=== PATIENT | male | born 1995 | race Asian ===

== ENCOUNTER 2019-09-11 11:45 | Emergency (ER) | payer OTHER ==
[~2019-09-11] VITALS: Ht 177.8 cm; Wt 77.1 kg
[2019-09-11 12:09] VITALS: Ht 177.8 cm; Wt 77.1 kg
[2019-09-11 13:45] VITALS: BP 132/77
== END 2019-09-11 13:45 | disposition home or self-care (01) ==
LOC: ED 11:45
DX: S03.01XA Dislocation of jaw, right side, initial encounter (principal); X58.XXXA Exposure to other specified factors, initial encounter; Y93.89 Activity, other specified; Y92.89 Other specified places as the place of occurrence of the external cause; Y99.8 Other external cause status